=== PATIENT | male | born 1965 | race African-American/Black ===

== ENCOUNTER 2020-10-11 09:54 | Emergency (ER) | payer MEDICAID ==
[~2020-10-11] VITALS: Ht 177.8 cm; Wt 81.0 kg
[2020-10-11 10:02] VITALS: BP 142/82
[2020-10-11] MEDS ORDERED: CETI10TA6 PO ×2 (11:19→14:26)
[2020-10-11] MEDS ORDERED: FLUT9.9S BOTHNSTRLS ×2 (11:19→14:26)
== END 2020-10-11 11:30 | disposition home or self-care (01) ==
LOC: ER 09:54
DX: J06.9 Acute upper respiratory infection, unspecified (principal); T50.B95A Adverse effect of other viral vaccines, initial encounter; Y92.018 Other place in single-family (private) house as the place of occurrence of the external cause
CPT/HCPCS: 82962; 99283

== ENCOUNTER 2020-10-16 12:06 | Emergency (ER) | payer MEDICAID ==
[~2020-10-16] VITALS: Ht 172.7 cm; Wt 75.0 kg
[~2020-10-16 12:06] MED LIST: CETI10TA6 PO; FLUT9.9S BOTHNSTRLS
[2020-10-16] MEDS ORDERED: PSEU60TA95 MT (15:14)
[2020-10-16] MEDS ORDERED: AMOX-424 MT (15:14)
[2020-10-16] MEDS ORDERED: IBUP-2029 MT (15:16)
[2020-10-16 15:43] VITALS: BP 131/81
== END 2020-10-16 15:43 | disposition home or self-care (01) ==
LOC: ER 12:06
DX: U07.1 COVID-19 (principal); J01.90 Acute sinusitis, unspecified
CPT/HCPCS: 71045; 99284; C9803; U0003; U0005

== ENCOUNTER 2020-10-21 03:37 | Emergency (ER) | payer MEDICAID ==
[~2020-10-21] VITALS: Ht 175.3 cm; Wt 81.0 kg
[~2020-10-21 03:37] MED LIST changes: +AMOX-424 MT; +IBUP-2029 MT; +PSEU60TA95 MT
[2020-10-21] MEDS ORDERED: OMEP20TA2 PO (05:23)
[2020-10-21 05:52] VITALS: BP 136/79
== END 2020-10-21 05:54 | disposition home or self-care (01) ==
LOC: ER 03:37
DX: U07.1 COVID-19 (principal); R13.10 Dysphagia, unspecified; Z86.16 Personal history of COVID-19
CPT/HCPCS: 99282

== ENCOUNTER 2020-10-27 13:33 | Emergency (ER) | payer MEDICAID ==
[~2020-10-27] VITALS: Ht 175.3 cm; Wt 81.0 kg
[~2020-10-27 13:33] MED LIST changes: +OMEP20TA2 PO
[2020-10-27 13:49] VITALS: BP 135/79
[2020-10-27] MEDS ORDERED: CARBAMIDE PEROXIDE 6.5% OTIC SOLN 15ML EACH EAR ONE (15:30)
[2020-10-27 15:45] LABS: CLARITY URINE CLEAR (CLEAR); COLOR URINE YELLOW (YELLOW); KETONES URINE NEGATIVE (NEGATIVE); LEUKOCYTE ESTERASE URINE NEGATIVE (NEGATIVE); NITRITE URINE NEGATIVE (NEGATIVE); OCCULT BLOOD URINE NEGATIVE (NEGATIVE); PH URINE 6.5 (4.5-8.0); PROTEIN URINE NEGATIVE (NEGATIVE); SPECIFIC GRAVITY URINE 1.012 (1.005-1.030); UROBILINOGEN URINE 0.2 E.U./dL (0.2-1.0)
== END 2020-10-27 16:36 | disposition home or self-care (01) ==
LOC: ER 13:33
DX: Z20.822 Contact with and (suspected) exposure to COVID-19 (principal)
CPT/HCPCS: 81003; 82962; 99283; C9803; U0003; U0005

== ENCOUNTER 2020-10-27 16:58 | Emergency (ER) | payer MEDICAID | END 2020-10-27 17:55 | disposition left against medical advice (07) | LOC: ER 16:58 | DX: Z53.21 Procedure and treatment not carried out due to patient leaving prior to being seen by health care provider (principal) ==

== ENCOUNTER 2020-10-29 11:10 | Emergency (ER) | payer MEDICAID ==
[~2020-10-29] VITALS: Ht 175.3 cm; Wt 80.0 kg
[2020-10-29 11:49] VITALS: BP 137/83
== END 2020-10-29 14:10 | disposition left against medical advice (07) ==
LOC: ER 11:10
DX: Z53.21 Procedure and treatment not carried out due to patient leaving prior to being seen by health care provider (principal)

== ENCOUNTER 2020-11-15 18:01 | Emergency (ER) | payer MEDICAID ==
[~2020-11-15] VITALS: Ht 175.3 cm; Wt 76.0 kg
[2020-11-15] MEDS ORDERED: IBUPROFEN 400MG TABLET PO ONE (19:00)
[2020-11-15 19:31] VITALS: BP 122/77
[2020-11-15] MEDS ORDERED: IBUP-2028 MT (20:44)
== END 2020-11-15 21:03 | disposition home or self-care (01) ==
LOC: ER 18:01
DX: S93.401A Sprain of unspecified ligament of right ankle, initial encounter (principal); H61.23 Impacted cerumen, bilateral; X50.1XXA Overexertion from prolonged static or awkward postures, initial encounter; Y93.89 Activity, other specified; Y92.018 Other place in single-family (private) house as the place of occurrence of the external cause
CPT/HCPCS: 69209; 73610; 99283

== ENCOUNTER → 2020-11-18 | Emergency (ER) | payer MEDICAID ==
[~2020-11-18] MED LIST changes: +IBUP-2028 MT
== END | disposition left against medical advice (07) ==
LOC: ER 09:11
DX: Z53.21 Procedure and treatment not carried out due to patient leaving prior to being seen by health care provider (principal)

== ENCOUNTER 2020-11-25 13:58 | Emergency (ER) | payer MEDICAID ==
[~2020-11-25] VITALS: Ht 177.8 cm; Wt 82.0 kg
[2020-11-25 15:11] VITALS: BP 124/74
== END 2020-11-25 15:12 | disposition home or self-care (01) ==
LOC: ER 14:05
DX: G89.29 Other chronic pain (principal); M25.571 Pain in right ankle and joints of right foot
CPT/HCPCS: 99281